=== PATIENT | female | born 1945 | race Caucasian/White ===

== ENCOUNTER → 2016-07-31 | Outpatient (CLI) | payer OTHER, MEDICARE ==
--- NOTE | 2016-08-02 10:54 | DX ---
DEXA Bone Densitometry Technique: DEXA scan was performed on [employer] W Bone Densitometer Indication: Osteopenia Comparator Study: March 2010 Results: Lumbar Spine BMD: 0.926 T-score: -1.1 Prior BMD: 0.985 % change: -5.9% Total Hip (Right) BMD: 0.690 T-score: -2.1 Prior BMD: 0.787 % Change: -12.3% Femoral Neck (Right) BMD: 0.705 T-score: -1.3 Total Hip (Left) BMD: 0.711 T-score: -1.9 Femoral Neck (Left) BMD: 0.675 T-score: -1.6 CONCLUSION: Osteopenia In comparison to prior study from June 2001 the patient's measured BMD in the lumbar spine is dec reased significantly. The patient's measured BMD in the total hip has decreased significantly. ADDITIONAL COMMENTS: By FRAX calculation, the estimated 10 year risk of any osteoporotic fracture is 8.2%. The estimated 1 0 year risk of hip fracture is 1.3%. Mild scoliosis is present Mild degenerative changes are present lower lumbar spine. This will increase the measured bone densit y of the lumbar spine Consider repeating the study in 2 years NOTE: The risk of osteoporotic fractures increases approximately twofold for each 1.0 SD decrease in T-score. The T-score represents the standard deviations from a young normal, same sex, reference po pulation. Low bone density is not the only risk factor for fracture. Clinical factors to consider include fall risk, previous osteoporotic fractures, family history of fractures, smoking, and low body weight. Patients who have an unexpectedly low BMD may need to be evaluated for secondary causes of low bone m ineral density. In comparing the present study to a prior study, lack of a significant increase or decrease in BMD ma y signify efficacy of the patient's present treatment. Bone mineral density measurements performed with densitometers produced by different manufacturers ar e not comparable. For the most reproducible BMD measurement, subsequent exams should be performed on the same densitometer.
== END ==
LOC: BMCIMAGING 15:04
PROVIDERS: ATTEND Obstetrics & Gynecology
DX: Z13.820 Encounter for screening for osteoporosis (principal); M85.80 Other specified disorders of bone density and structure, unspecified site

== ENCOUNTER → 2017-02-02 | Outpatient (CLI) | payer OTHER, MEDICARE | LOC: FIMAGING 15:28 | DX: Z12.31 Encounter for screening mammogram for malignant neoplasm of breast (principal); Z80.3 Family history of malignant neoplasm of breast | CPT/HCPCS: G0202 ==

== ENCOUNTER → 2018-07-29 | Outpatient (CLI) | payer OTHER, MEDICARE | LOC: FIMAGING 16:10 | DX: Z12.31 Encounter for screening mammogram for malignant neoplasm of breast (principal) ==